=== PATIENT | male | born 2000 | race Caucasian/White ===

== ENCOUNTER 2022-08-29 15:12 | Outpatient (CLI) | payer BC ==
[2022-08-31 15:11] LABS: HBSAG SCREEN Negative (Negative); HEP A AB, IGM Negative (Negative)
== END 2022-08-29 23:59 | disposition home or self-care (01) ==
LOC: LAB 15:12
PROVIDERS: ATTEND Physician Assistant
DX: Z72.51 High risk heterosexual behavior (principal)
CPT/HCPCS: 36415; 80074; 86592; 86695; 86696; 87389; 87491